=== PATIENT | female | born 1965 | race Caucasian/White ===

== ENCOUNTER 2023-10-27 15:46 | Emergency (ER) | payer OTHER ==
[~2023-10-27] VITALS: Ht 152.4 cm; Wt 68.0 kg
[2023-10-27 16:03] VITALS: BP 134/60; PULSE 63; RESP 16; TEMP 97.4; O2SAT 98
[2023-10-27] MEDS ORDERED: TETANUS, DIPHTHERIA, PERTUSSIS VAC/PF 0.5ML (>10YR OLD) IM ONE ×2 (18:15→22:20)
[2023-10-27] MEDS ORDERED: CEPH500C2 MT (22:15)
== END 2023-10-27 22:49 | disposition home or self-care (01) ==
LOC: ER 15:46
DX: S09.90XA Unspecified injury of head, initial encounter (principal); S61.511A Laceration without foreign body of right wrist, initial encounter; G89.11 Acute pain due to trauma; Z98.890 Other specified postprocedural states; V49.49XA Driver injured in collision with other motor vehicles in traffic accident, initial encounter; Y93.89 Activity, other specified; Y92.89 Other specified places as the place of occurrence of the external cause; Y99.8 Other external cause status
CPT/HCPCS: 73100; 73120; 70450; 90715; 90471; 99285; Z7610